=== PATIENT | female | born 1980 | race Hispanic/Latino ===

== ENCOUNTER 2017-09-04 11:22 | Emergency (ER) | payer SELFPAY | END 2017-09-04 11:29 | disposition left against medical advice (07) | LOC: ERS 11:22 | DX: Z53.21 Procedure and treatment not carried out due to patient leaving prior to being seen by health care provider (principal) ==

== ENCOUNTER 2019-04-10 18:02 | Emergency (ER) | payer SELFPAY ==
[2019-04-10 18:51] LABS: Bilirubin Negative (Negative); Blood, Urine Negative (Negative); Clarity TURBID (Clear); Glucose, Urine (Dipstick) Negative (Negative); Leukocyte Negative (Negative); Nitrite Negative (Negative); Protein, Urine (Dipstick) Negative (Neg-Trace); pH, Urine 7.5 (5.0-9.0)
[2019-04-10 18:58] LABS: Pregnancy Test - Urine (BHCG) Negative (Negative); Pregu Control Background? CLEAR/WHITE (CLR/WHITE); Pregu Control Bar Appear? YES (CONTROL BAR)
[2019-04-12 00:59] LABS: Chlamydia by PCR Not Detected (NotDetected); GC by PCR Not Detected (NotDetected)
== END 2019-04-10 19:44 | disposition home or self-care (01) ==
LOC: ERS 18:02
DX: R10.31 Right lower quadrant pain (principal); F17.210 Nicotine dependence, cigarettes, uncomplicated; E11.9 Type 2 diabetes mellitus without complications
CPT/HCPCS: 81003; 81025; 87480; 87491; 87510; 87591; 87660; 99284

== ENCOUNTER 2019-08-12 09:39 | Emergency (ER) | payer SELFPAY ==
[2019-08-12] MEDS ORDERED: Ketorolac Tromethamine 30 MG/ML VIAL ONE (10:52)
[2019-08-12] MEDS ORDERED: Diazepam 5 MG TAB ONE (10:53)
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
== END 2019-08-12 11:45 | disposition home or self-care (01) ==
LOC: ERS 09:39
DX: S16.1XXA Strain of muscle, fascia and tendon at neck level, initial encounter (principal); S40.812A Abrasion of left upper arm, initial encounter; S40.811A Abrasion of right upper arm, initial encounter; E11.9 Type 2 diabetes mellitus without complications; R51 Headache; F17.210 Nicotine dependence, cigarettes, uncomplicated; V49.9XXA Car occupant (driver) (passenger) injured in unspecified traffic accident, initial encounter
CPT/HCPCS: 70450; 72125; 96372; J1885

== ENCOUNTER 2020-03-16 09:29 | Emergency (ER) | payer SELFPAY ==
[2020-03-16 10:06] LABS: #Basophils 0.1 thou/uL (0.0-0.2); #Eosinphils 0.2 thou/uL (0.0-0.7); #Lymphocytes 1.7 thou/uL (1.20-3.40); #Monocytes 0.5 thou/uL (0.11-0.59); #Neutrophils 6.6 thou/uL (1.40-6.50); %Basophils 0.9 % (0.0-1.0); %Lymphocytes 18.6 % (21.0-51.0); %Monocytes 5.6 % (0.0-10.0); %Neutrophils 72.9 % (42.0-75.0); Hemoglobin 11.7 g/dL (12.0-16.0); Mean Corpuscular HGB CONC 31.6 g/dL (32.0-36.0); Mean Corpuscular Hemoglobin 25.8 pg (27.0-31.0); Mean Corpuscular Volume 81.7 fL (78.0-98.0); Mean Platelet Volume 8.2 fL (7.4-10.4); Platelet Count 362 thou/uL (130-400); RBC Distribution Width 15.9 % (11.5-14.5); Red Blood Cell (RBC) Count 4.53 mill/uL (4.20-5.40); White Blood Cell (WBC) Count 9.1 thou/uL (4.8-10.8)
[2020-03-16 10:16] LABS: ALT (SGPT) 14 U/L (8-55); AST (SGOT) 21 U/L (5-34); Albumin 4.3 g/dL (3.5-5.0); Alkaline Phosphatase 81 U/L (40-110); Anion Gap 15 mmol/L (10-20); BHCG - Serum Negative (NEGATIVE); BUN (Urea Nitrogen) 13 mg/dL (7.0-18.7); Bilirubin, Total 0.4 mg/dL (0.2-1.2); CK (CPK) 104 U/L (29-168); Calc. Creatinine Clearance 0 mL/min (70-130); Calcium 9.1 mg/dL (7.8-10.44); Carbon Dioxide 21 mmol/L (22-29); Chloride 108 mmol/L (98-107); Estimated GFR-MDRD Greater than 90; Globulin 3.1 g/dL (2.4-3.5); Glucose 93 mg/dL (70-105); Potassium 4.5 mmol/L (3.5-5.1); Pregs Control Background? CLEAR/WHITE (CLR/WHITE); Pregs Control Bar Appear? YES (CONTROL BAR); Protein, Total 7.4 g/dL (6.0-8.3); Sodium 139 mmol/L (136-145)
--- NOTE | 2020-03-16 11:08 | RAD ---
CHEST TWO VIEWS: HISTORY: Chest pain. COMPARISON: None. FINDINGS: The lungs are clear. No pneumothorax or effusion. The cardiac silhouette and mediastinal contours are within normal limits. No acute osseous abnormality. IMPRESSION: No acute intrathoracic abnormality. POS: HOME
[2020-03-16] MEDS ORDERED: Aspirin Chewable 81 MG TAB ONE (11:55)
[2020-03-16 13:15] LABS: Troponin I 0.015 ng/mL (< 0.028)
--- NOTE | 2020-03-28 16:55 | EKG ---
Test Reason : Blood Pressure : / mmHG Vent. Rate : 078 BPM Atrial Rate : 078 BPM P-R Int : 114 ms QRS Dur : 076 ms QT Int : 354 ms P-R-T Axes : 045 -12 000 degrees QTc Int : 403 ms Normal sinus rhythm Inferior infarct , age undetermined Abnormal ECG Confirmed by GINO LORD M.D. ([id number]), editor book HARISH RABAGO ([id number]) on 03/28/2020 4:55:21 PM Referred By: Confirmed By:GINO LORD M.D.
--- NOTE | 2020-03-28 16:57 | EKG ---
Test Reason : Blood Pressure : / mmHG Vent. Rate : 061 BPM Atrial Rate : 061 BPM P-R Int : 142 ms QRS Dur : 078 ms QT Int : 426 ms P-R-T Axes : 047 027 016 degrees QTc Int : 428 ms Normal sinus rhythm No STEMI Normal ECG Confirmed by GINO LORD M.D. ([id number]), managing editor HARISH RABAGO ([id number]) on 03/28/2020 4:56:59 PM Referred By: Confirmed By:GINO LORD M.D.
== END 2020-03-16 14:20 | disposition home or self-care (01) ==
LOC: ERS 09:29
DX: R07.89 Other chest pain (principal); B34.9 Viral infection, unspecified; I10 Essential (primary) hypertension; E11.9 Type 2 diabetes mellitus without complications; E78.5 Hyperlipidemia, unspecified; F17.210 Nicotine dependence, cigarettes, uncomplicated
CPT/HCPCS: 36415; 71046; 80053; 82550; 83690; 84484; 84703; 85025; 93005

== ENCOUNTER 2020-04-07 13:08 | Emergency (ER) | payer OTHER, SELFPAY ==
[2020-04-08 10:35] LABS: SARS-CoV-2 MS2 Positive; SARS-CoV-2 N Gene Negative; SARS-CoV-2 S Gene Negative; SARS-CoV-2 orf1ab Negative
== END 2020-04-07 14:24 | disposition home or self-care (01) ==
LOC: ERS 13:08
DX: Z20.828 Contact with and (suspected) exposure to other viral communicable diseases (principal); I10 Essential (primary) hypertension; E11.9 Type 2 diabetes mellitus without complications; E78.5 Hyperlipidemia, unspecified; F17.210 Nicotine dependence, cigarettes, uncomplicated
CPT/HCPCS: 87635; 99283; U0003

== ENCOUNTER 2021-03-18 09:31 | Emergency (ER) | payer OTHER ==
[2021-03-18] MEDS ORDERED: Ketorolac Tromethamine 30 MG/ML VIAL ONE (10:06)
== END 2021-03-18 11:21 | disposition home or self-care (01) ==
LOC: ERS 09:31
DX: M79.672 Pain in left foot (principal); E11.9 Type 2 diabetes mellitus without complications; I10 Essential (primary) hypertension; E78.5 Hyperlipidemia, unspecified; F17.210 Nicotine dependence, cigarettes, uncomplicated; V49.9XXA Car occupant (driver) (passenger) injured in unspecified traffic accident, initial encounter
CPT/HCPCS: 96372; J1885

== ENCOUNTER 2023-09-23 10:54 | Emergency (ER) | payer OTHER, SELFPAY ==
[2023-09-23] MEDS ORDERED: predniSONE 20 MG TAB ONE (11:51)
[2023-09-23 11:58] LABS: SARS-CoV-2 NAA Rapid Test Not Detected (NotDetected)
[2023-09-23 12:31] LABS: #Basophils 0.1 thou/uL (0.0-0.2); #Eosinphils 0.4 thou/uL (0.0-0.7); #Monocytes 0.6 thou/uL (0.11-0.59); %Basophils 0.5 % (0.0-1.0); %Eosinophils 3.9 % (0.0-10.0); %Lymphocytes 17.7 % (21.0-51.0); %Monocytes 5.8 % (0.0-10.0); %Neutrophils 71.6 % (42.0-75.0); Hematocrit 39.4 % (36.0-47.0); Hemoglobin 12.6 g/dL (12.0-16.0); Mean Corpuscular Hemoglobin 28.1 pg (27.0-31.0); Mean Corpuscular Volume 87.9 fl (78.0-98.0); Mean Platelet Volume 9.8 fL (7.4-10.4); Platelet Count 337 10x3/uL (130-400); RBC Distribution Width 15.3 % (11.5-14.5); Red Blood Cell (RBC) Count 4.48 mill/uL (4.20-5.40); White Blood Cell (WBC) Count 9.7 10x3/uL (4.8-10.8)
[2023-09-23 12:55] LABS: ALT (SGPT) 14 U/L (8-55); AST (SGOT) 20 U/L (5-34); Albumin 4.1 g/dL (3.5-5.0); Alkaline Phosphatase 71 U/L (40-110); Anion Gap 9 mmol/L (10-20); BUN (Urea Nitrogen) 13 mg/dL (7.0-18.7); Bilirubin, Total 0.4 mg/dL (0.2-1.2); Calc. Creatinine Clearance 0 mL/min (70-130); Calcium 8.9 mg/dL (7.8-10.44); Carbon Dioxide 24 mmol/L (22-29); Chloride 107 mmol/L (98-107); Estimated GFR 117; Globulin 2.2 g/dL (2.4-3.5); Glucose 82 mg/dL (70-105); Lipase 18 U/L (8-78); Protein, Total 6.3 g/dL (6.0-8.3); Sodium 136 mmol/L (136-145)
[2023-09-23 12:57] LABS: Troponin I Less than 0.010 ng/mL (< 0.028)
== END 2023-09-23 14:43 | disposition home or self-care (01) ==
LOC: ERS 10:54
DX: J06.9 Acute upper respiratory infection, unspecified (principal); I10 Essential (primary) hypertension; E11.9 Type 2 diabetes mellitus without complications; R93.89 Abnormal findings on diagnostic imaging of other specified body structures; F17.210 Nicotine dependence, cigarettes, uncomplicated; Z20.822 Contact with and (suspected) exposure to COVID-19
CPT/HCPCS: 36415; 71045; 71275; 80053; 83690; 83735; 83880; 84484; 85025; 93005; J7512